=== PATIENT | male | born 1970 | race Caucasian/White ===

== ENCOUNTER 2024-11-25 09:00 | Emergency (ER) | payer BC, SELFPAY ==
--- NOTE | ~2024-11-25 | XR_ITS ---
Examination: XR tibia fibula LT 2V, XR ankle LT min 3V Clinical History: fell in hole 2 days ago. Hematoma mid fibula Comparison: None Technique: 2 views left tibia fibula, 4 views left ankle Findings/impression: Left tibia-fibula: 1. No fracture. 2. Varicose veins. Left ankle: 1. No fracture or dislocation. Reviewed, dictated and finalized at location R.
--- OUTSIDE RECORDS SUMMARY | 2024-11-25 09:13 | XMS_ITS | Clinical Summary ---
Author Organization [facility] Address [address] [place] [address] Phone Care Team Providers Care Hemodialysis Lab Technician Name Role Phone Khadar Joseph MD Primary Care Provider [phone] Allergies Active Allergy Reactions Criticality Noted Date Comments Azithromycin Hives Medium 11/26/2015 Medications traZODone (DESYREL) 100 MG Tablet take 1 tablet by mouth every day at bedtime Active albuterol 108 (90 Base) MCG/ACT Aerosol SolutionIndicat ions:Bronchitis take 2 Puffs by inhalation every 4 hours as needed for Wheezing or Cough. 18 g Active Social History Tobacco Use Types Packs/Day Years Used Date Smoking Tobacco: Never Passive Smoke Exposure: Never Smokeless Tobacco: Never Tobacco Cessation:Counseling Given: No Alcohol Use Standard Drinks/Week Comments Never 0 (1 standard drink = 0.6 oz pur e alcohol) Sex and Gender Information Value Date Recorded Sex Assigned at Male 03/01/2024 11:23 AM RESIDENTIAL PROPERTY MANAGER Legal Sex Male 1:43 PM CDT Gender Identity Male 03/01/2024 11:23 AM RESIDENTIAL PROPERTY MANAGER Sexual Orientation Not on file Last Filed Vital Signs Vital Sign Reading Time Taken Comments Blood Pressure 151/95 06/18/2024 12:51 AM CDT Pulse 72 06/18/2024 12:51 AM CDT Temperature 36.6 C (97.9 F) 06/18/2024 12:51 AM CDT Respiratory Rate 16 06/18/2024 12:51 AM CDT Oxygen Saturation 97% 06/18/2024 12:51 AM CDT Inhaled Oxygen Concentration - - Weight 103.4 kg (228 lb) 06/17/2024 9:12 PM CDT Height 182.9 cm (6') 06/17/2024 9:12 PM CDT Body Mass Index 30.92 06/17/2024 9:12 PM CDT Plan of Treatment Health Maintenance Due Date Last Done Comments Hepatitis C Virus (HCV) Screening 1969 TdaP Immunization 1969 Hepatitis B Immunization (1 of 3 - 19+ 3-dose series) 1988 Cologuard 2014 Colonoscopy 2014 Colorectal Cancer Screening 2014 Immunochemical Fecal Occult Blood 2014 Pneumococcal Immunization (5 0+ years) (1 of 1 - PCV) 04/26/2019 Zoster Immunization (1 of 2) 04/26/2019 PSA Discussion 2024 Influenza Immunization (#1) 2024 SARS-COV-2 Immunization (2 - season) 2024 04/28/2020 Respiratory Syncytial Virus (RSV) Immunization (Adult) (1 - 1-dose 75+ series) 2044 Human Papillomavirus (HPV) Immunization Aged Out No longer eligible b ased on patient's age to complete this topic Meningococcal Immunization (ACWY) Aged Out No longer eligible based on patient's age to complete this topic Rotavirus Immunization Aged Out No lo nger eligible based on patient's age to complete this topic Insurance Care Teams Hemodialysis Lab Technician Relationship Specialty Start Date End Date Kahdar Joseph MD [address] [place] [address] PCP - General Internal Medicine 02/29/24
--- OUTSIDE RECORDS SUMMARY | 2024-11-25 09:13 | XMS_ITS | Clinical Summary ---
Author Organization [facility] Address Formerly [facility] [place] [address] Care Team Providers Care Geodetic Surveyor Name Role Phone Khadar Joseph MD Primary Care Provider [phone] Glenn Rangel MD Unavailable Unavailabl e Allergies Active Allergy Reactions Criticality Noted Date Comments Azithromycin Hives Medium 11/26/2015 Medications traZODone (DESYREL) 100 MG tablet Take 100 mg by mouth. Active aspirin EC 81 MG tablet Take 81 mg by mouth daily. Active magnesium oxide (MAG-OX) 400 (240 Mg) MG tablet Take 1 tablet (400 mg total) by mouth daily. 90 tablet 3 04/06/2022 Active carvedilol (COREG) 3.125 MG tablet Take 1 tablet (3.125 mg total) by mouth every 12 (twelve) hours. 180 tablet 3 04/06/2022 Active Active Problems Problem Noted Date Diagnosed Date Chest pain in adult 04/06/2022 Family History Medical History Relation Comments Diabetes Other Hypertension Other Relation Status Comments Other Social History Tobacco Use Types Packs/Day Years Used Date Smoking Tobacco: Never Smokeless Tobacco: Never Tobacco Cessation:Counseling Given: Not Answered Alcohol Use Standard Drinks/Week Comments Not Currently 0 (1 standard drink = 0.6 oz pur e alcohol) Sex and Gender Information Value Date Recorded Sex Assigned at Not on file Legal Sex Male 11:36 PM CDT Gender Identity Not on file Sexual Orientation Not on file Occupation Industry Job Start Date Job End Date 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[place], 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[employer], 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 Not on file Not on file Not on file Last Filed Vital Signs Vital Sign Reading Time Taken Comments Blood Pressure 130/80 04/06/2022 2:07 PM [facility] Pulse 90 04/06/2022 2:07 PM [facility] Temperature - - Respiratory Rate 14 04/06/2022 2:07 PM [facility] Oxygen Saturation - - Inhaled Oxygen Concentration - - Weight 102.1 kg (225 lb) 05/10/2022 12:12 PM CDT Height 185.4 cm (6' 1) 05/10/2022 12:12 PM CDT Body Mass Index 29.69 05/10/2022 12:12 PM CDT Plan of Treatment Health Maintenance Due Date Last Done Comments Colorectal Cancer Screening Colonoscopy (10 Years) 1969 Annual Physical 1972 Hepatitis C 04/26/1987 DTaP, Tdap and Td Vaccines ( 1 - Tdap) 1988 Hepatitis B Vaccines (1 of 3 - 19+ 3-dose series) 1988 Pneumococcal Vaccine: 50+ Ye ars (1 of 1 - PCV) 04/26/2019 Zoster Vaccines (1 of 2) 04/26/2019 COVID-19 Vaccine (2 - 2024-2 6 season) 2024 04/28/2020 Influenza Adult (#1) 2024 Meningococcal B Vaccine Aged Out No l onger eligible based on patient's age to complete this topic Meningococcal Vaccine Aged Out No vida patricia eligible based on patient's age to complete this topic RSV Immunizations Under 20 Months Aged Out No longer eligible based on patient's age to complete this topic Care Teams Geodetic Surveyor Relationship Specialty Start Date End Date Khadar Joseph MD [address] [place] [id number] PCP - General INTERNAL MEDICINE 03/25/22 Glenn Rangel MD [address] [place] [id number] [place] [employer] CARDIOVASCULAR DISEASE 03/25/22
--- OUTSIDE RECORDS SUMMARY | 2024-11-25 09:13 | XMS_ITS | Clinical Summary ---
Author Organization [facility] [employer] Address [address] [place] [address] Care Team Providers Care Armored Machine Operator Name Role Phone Khadar Joseph MD Primary Care Provider [phone] Source Comments [facility] [employer],non-owned Affiliates and Associated Physician Practices is amultiple site organization consisting of ambulatory clinics and hospital sitesin [place], [place], [place] and [place]. This disclosure is being madepursuant to the Care Everywhere program and may not contain all information available regarding this patient. Last updated 17.[facility] [employer] Allergies Active Allergy Reactions Criticality Noted Date Comments Azithromycin Urticaria Medium 11/26/2015 Medications * Be aware that medications may not be up to date on this document. Alwaysverify current medications with the patient. traZODone (DESYREL) 100 MG tablet Take 1 (one) tablet by mouth at bedtime Active amLODIPine (Norvasc) 5 MG tablet Take 1 (one) tablet by mouth once daily 5 Active linaCLOtide (Linzess) 145 MCG capsuleIndicati ons:Constipatio n associated with Irritable Bowel Syndrome Take 1 (one) capsule by mouth daily before breakfast for 30 days Take on an empty stomach at least 30 minutes prior to first meal of the day. 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 Pre-op evaluation Social History Tobacco Use Types Packs/Day Years Used Date Smoking Tobacco: Never Smokeless Tobacco: Never Tobacco Cessation:Counseling Given: Not Answered Alcohol Use Standard Drinks/Week Comments Never 0 (1 standard drink = 0.6 oz pur e alcohol) AUDIT-C Answer Date Recorded Frequency of Alcohol Consumption Never 11/27/2018 Average Number of Drinks Not on file 019 Frequency of Binge Drinking Not on file 11/14 PHQ-2 Answer Date Recorded Patient Health Questionnaire-2 Score 1 05/30/2024 Sex and Gender Information Value Date Recorded Sex Assigned at Not on file Legal Sex Male 11:26 AM CDT Gender Identity Not on file Sexual Orientation Not on file Last Filed Vital Signs Vital Sign Reading Time Taken Comments Blood Pressure 149/83 07/30/2024 9:26 AM CDT Pulse 91 07/30/2024 9:26 AM CDT Temperature 36.8 C (98.2 F) 07/30/2024 9:26 AM CDT Respiratory Rate 18 07/30/2024 9:26 AM CDT Oxygen Saturation 100% 07/30/2024 9:26 AM CDT Inhaled Oxygen Concentration - - Weight 106 kg (233 lb 9.6 oz) 07/30/2024 9:26 AM CDT Height 182.9 cm (6') 07/30/2024 9:26 AM CDT Body Mass Index 31.68 07/30/2024 9:26 AM CDT Plan of Treatment Health Maintenance Due Date Last Done Comments COLOGUARD (AGES 45-75) - COLON CA SCREENING 1969 CT COLONOGRAPHY - COLON CA SCREENING 1969 FIT - COLON CA SCREENING 1969 FLEX SIG - COLON CA SCREENING 1969 HIV SCREENING 1984 HEPATITIS C SCREENING 04/21/1987 DTAP/TDAP/TD VACCINES (1 - Tdap) 1988 HEPATITIS B VACCINE (1 of 3 - 19+ 3-dose series) 1988 PNEUMOCOCCAL VACCINE 50+ (1 of 1 - PCV) 04/26/2019 ZOSTER VACCINE (1 of 2) 04/26/2019 COVID-19 VACCINE (2 - season) 2024 04/28/2020 INFLUENZA VACCINE (#1) 2024 SCREENING FOR DIABETES 04/29/2025 3, 04/29/2022, 11/26/2015, Additional history exists LIPID TESTING 04/01/2027 04/01/2022 COLON MONITORING 03/15/2029 03/15/2019 COLONOSCOPY - COLON CA SCREENING 03/15/2029 03/15/2019 Colorectal Cancer Screening 03/15/2029 DEPRESSION SCREENING Completed 05/30/2024 HIB VACCINE Aged Out No longer eligi ble based on patient's age to complete this topic HPV VACCINE Aged Out No longer eligi ble based on patient's age to complete this topic MENINGOCOCCAL (Group B) VACCINE SHARED DECISION-MAKING Aged Out No longer eligible based on patient's age to complete this topic MENINGOCOCCAL GROUPS A/C/Y/W VACCINE Aged Out No longer eligible based on patient's age to complete this topic Medical Devices Implanted Type Area It Security Analyst Device Identifier Shelf Expiration Date Model / Serial / Lot Stent Uret 6fr 26cm Pshr Fl Mrkr Atrm - Sn/A Implanted:Qty: 1 on 12/02/2015 by Adolfo Torres MD at [facility] Left: [employer] 03/03/2019 [id number] / N/A / [id number] Procedures Procedure Name Priority Date/Time Associated Diagnosis Comments GLUCOSE - POINT OF CARE Routine 04/29/2022 1:34 PM CDT from Last 3 Months or Most Recently Relevant to Health Maintenance Results * GLUCOSE - POINT OF CARE (04/29/2022 1:34 PM CDT) [facility] Glucose WB/POC 87 70 - 125 mg/dL 04/29/2022 1:35 PM CDT [facility] Specimen Type Cap Fingerstick 2022 1:35 PM CDT [facility] Blood BLOOD SPECIMEN / Unknown 04/29/2022 1:34 PM CDT 04/29/2022 1:35 PM CDT Rebecca Anders MD LAB - POINT OF CARE ORDERABLES Final Result Performing Organization Address City/State/[facility] Co de Phone Number [facility] [address] from Last 3 Months or Most Recently Relevant to Health Maintenance Insurance [facility] Member Subscriber Plan / Payer (Ef fective 2004-Present) Name:Amilcar Rangel W Relation to Subscriber:Self Name:Amilcar Rangel Payer ID:Not on file Type:PPO Address: [address] [place], [place] [id number] [address] Care Teams Armored Machine Operator Relationship Specialty Start Date End Date Khadar Joseph MD [address] [place] [id number] PCP - General Pediatrics 04/29/22
--- OUTSIDE RECORDS SUMMARY | 2024-11-25 09:13 | XMS_ITS | Encounter Summary ---
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
[2024-11-25 09:17] VITALS: BP 135/80; PULSE 80; RESP 18; TEMP 36.6; O2SAT 100
--- NOTE | 2024-11-25 10:14 | ED_ITS ---
HPI - Extremity Injury (Lower) General Chief Complaint: Extremity Injury, Lower Stated Complaint: Fall Time Seen by Provider: 11/25/24 09:41 Source: patient and RN notes reviewed Mode of arrival: ambulatory Limitations: no limitations History of Present Illness HPI Narrative: Patient presents today complaining of a 2 day history of left ankle and mid lateral lower leg pain. He was walking backwards and fell into a hole, striking the lateral portion of his leg on the ledge of the hole and also causing pain to the lateral ankle. Denies numbness or tingling. Reports bruising to the lateral lower leg as well. Currently rates his pain 6/10. He has tried Tylenol, ibuprofen, elevation, and ice. He Is not up-to-date on his tetanus vaccine Related Data Home Medications ?Medication ?Instructions ?Recorded ?Confirmed ?Last Taken ?Type trazodone 100 mg tablet mg 11/25/24 Unknown History Allergies Allergy/AdvReac Type Severity Reaction Status Date / Time No Known Allergies Allergy Verified 11/25/24 09:24 [facility] Past Medical History Medical History (Updated 11/25/24 @ 10:52 by Kati Quinteros, [facility], ) Kidney stone Cybbi-Ggbpomywb-Rlvxu (WPW) pattern Surgical History Surgical History (Updated 11/25/24 @ 10:21 by Kati Quinteros, [facility], ) H/O cardiac ablation History of appendectomy History of cholecystectomy Hx of tonsillectomy Comments At time of signature, I have reviewed and agree with nursing past medical, surgical, social and family history unless otherwise noted. Please see nursing chart for further information. There is no relevant family history pertinent to the presenting complaint Exam Narrative: GENERAL: Well-appearing, well-nourished, and in no acute distress. HEAD: Normocephalic, atraumatic. EYES: EOMI. No redness or drainage. Conjunctivae normal. ENT: Mucous membranes pink and moist. NECK: Normal AROM. CHEST: No respiratory distress. EXTREMITIES: Left leg: Slight edema to the lateral malleolus with mild tenderness to this area. Full range of motion with slight increased in pain. Mid lateral lower leg 3 cm round hematoma with small abrasion in the center. Tender to palpation. Distal sensation intact. Capillary refill normal. Pedal pulse normal. SKIN: Warm, dry, no rash. Capillary refill normal. Normal skin turgor. NEURO: No focal deficits. Alert and oriented x3. Gait steady. PSYCH: Normal affect. No signs of depression or anxiety. Course Course Level of Care: Express Care Visit Vital Signs Vital signs: Vital Signs Temperature 97.9 F 11/25/24 09:17 Pulse Rate 80 11/25/24 09:17 Respiratory Rate 18 11/25/24 09:17 Blood Pressure 135/80 11/25/24 09:17 Pulse Oximetry 100 11/25/24 09:17 Oxygen Delivery Room Air 11/25/24 09:17 Temperature 97.9 F 11/25/24 09:17 Pulse Rate 80 11/25/24 09:17 Respiratory Rate 18 11/25/24 09:17 Blood Pressure 135/80 11/25/24 09:17 Pulse Oximetry 100 11/25/24 09:17 Oxygen Delivery Room Air 11/25/24 09:17 Reviewed MDM - Extremity Injury (Lower) MDM Narrative Medical decision making narrative: Patient presents today complaining of a 2 day history of left ankle and mid lateral lower leg pain. He was walking backwards and fell into a hole, striking the lateral portion of his leg on the ledge of the hole and also causing pain to the lateral ankle. Upon exam, patient has a hematoma to the lateral lower leg and some mild edema to the left lateral malleolus. X-rays are negative of the tib-fib and ankle. Recommend icing both areas, starting NSAIDs for discomfort if needed, and monitoring hematoma for infection. Patient agrees with plan. Tetanus shot updated. Vital signs stable. Anticipatory guidance given. ED precautions given. Differential Diagnosis Differential diagnosis: Likely ankle sprain and strain, ankle fracture and other (hematoma, abrasion) Imaging Data Radiologist's impression: Findings/impression: Left tibia-fibula: 1. No fracture. 2. Varicose veins. Left ankle: 1. No fracture or dislocation. Critical Care Time Critical Care Time Critical Care Time: No Discharge Plan Discharge Clinical Impression: Hematoma of left lower extremity Qualifiers: Encounter type: initial encounter Qualified Code(s): S80.12XA - Contusion of left lower leg, initial encounter Left ankle sprain Qualifiers: Encounter type: initial encounter Involved ligament of ankle: unspecified ligament Qualified Code(s): S93.402A - Sprain of unspecified ligament of left ankle, initial encounter Patient Disposition: Home Condition: Stable Instructions: Ankle Sprain (DC), Hematoma (ED) Additional Instructions: Your x-rays are negative. Ice and elevate the lower leg and ankle. Start an anti-inflammatory such as Aleve or ibuprofen for discomfort if needed. Monitor your bruising for signs of infection such as redness, swelling, increased pain, or drainage, and see your doctor if you note any. Patient Language: Iranian Prescriptions: No Action trazodone 100 mg tablet Follow-up/Referrals: UNKNOWN,DOCTOR [Primary Care Provider] Time of Disposition: 10:51
[2024-11-25] MEDS: TETANUS,DIPHTHERIA,AC PERTUSSIS ADULT (0.5 ML) BOOSTRIX IM (10:19)
== END 2024-11-25 10:54 | disposition home or self-care (01) ==
PROVIDERS: Emergency Provider Nurse Practitioner
DX: S80.12XA Contusion of left lower leg, initial encounter (principal); S93.402A Sprain of unspecified ligament of left ankle, initial encounter; W17.2XXA Fall into hole, initial encounter; Z23 Encounter for immunization; I45.6 Pre-excitation syndrome
CPT/HCPCS: 73590; 73610; 90471; 90715; 99204; G0463